=== PATIENT | female | born 1950 | race Caucasian/White ===

== ENCOUNTER → 2016-11-14 | Outpatient (CLI) | payer OTHER | END | disposition home or self-care (01) | LOC: NUC 10:00 | DX: M41.85 Other forms of scoliosis, thoracolumbar region (principal); S22.31XA Fracture of one rib, right side, initial encounter for closed fracture; N28.9 Disorder of kidney and ureter, unspecified; R93.7 Abnormal findings on diagnostic imaging of other parts of musculoskeletal system; Z96.653 Presence of artificial knee joint, bilateral | CPT/HCPCS: 78315; A9503 ==